=== PATIENT | male | born 1935 | race Caucasian/White ===

== ENCOUNTER 2017-10-12 19:03 | Emergency (ER) | payer MEDICARE ==
[~2017-10-12] VITALS: Ht 182.9 cm; Wt 113.4 kg
[2017-10-12 19:09] VITALS: Ht 182.9 cm; Wt 113.4 kg
[2017-10-12 19:51] LABS: UA SPECIFIC GRAVITY >=1.030 (1.005-1.035); microscopic required? YES; urine erythrocyte 2+ (NEGATIVE)
[2017-10-12 19:57] LABS: PLATELET COUNT 457 x10^3mcL (130-400)
[2017-10-12 20:08] LABS: ALKALINE PHOSPHATASE 93 U/L (46-116); ALT/SGPT 33 U/L (16-63); AST/SGOT 28 U/L (15-37); BILIRUBIN TOTAL 0.5 mg/dL (0.20-1.00); CALCIUM 8.9 mg/dL (8.5-10.1); CHLORIDE SERUM 100 mmol/L (98-107); CHOLESTEROL 193 mg/dL (<200); CREATININE SERUM 0.8 mg/dL (0.7-1.3); GLUCOSE SERUM 118 mg/dL (74-106); HDL CHOLESTEROL 56 mg/dL (40-60); POTASSIUM SERUM 4.1 mmol/L (3.5-5.1); SODIUM SERUM 142 mmol/L (136-145); TOTAL PROTEIN, SERUM 7.8 g/dL (6.4-8.2)
[2017-10-12 20:10] LABS: ALBUMIN 3.2 g/dL (3.4-5.0)
[2017-10-12 20:41] LABS: BAND NEUTROPHIL 3 % (0-10); SEGMENTED NEUTROPHILS 85 % (37-75)
[2017-10-12 20:42] LABS: MONOCYTE 4 % (0-7); rbc morphology (normal/abnorm) NORMAL (NORMAL)
[2017-10-12 20:43] LABS: PLATELET MORPHOLOGY PLATELETS NORMAL
[2017-10-13 03:36] VITALS: BP 122/88
== END 2017-10-13 03:36 | disposition short-term general hospital (02) ==
LOC: ED 19:03
PROVIDERS: Emergency Medicine
DX: J44.1 Chronic obstructive pulmonary disease with (acute) exacerbation (principal); J45.901 Unspecified asthma with (acute) exacerbation; I10 Essential (primary) hypertension
CPT/HCPCS: 36600; 83880; J0696; J2930; Q0092